=== PATIENT | female | born 2000 | race African-American/Black ===

== ENCOUNTER → 2023-02-08 | Emergency (ER) | payer MEDICAID ==
--- NOTE | 2023-02-08 14:21 | NUR ---
PATIENT LEFT- DIDN'T WAIT FOR DISCHARGE INSTRUCTION.
== END | disposition home or self-care (01) ==
LOC: ER 13:00
DX: Z48.01 Encounter for change or removal of surgical wound dressing (principal); Z98.890 Other specified postprocedural states

== ENCOUNTER 2024-05-18 08:52 | Emergency (ER) | payer MEDICAID ==
[~2024-05-18] VITALS: Ht 167.6 cm; Wt 59.0 kg
[2024-05-18 09:18] VITALS: BP 122/84; TEMP 97.9; O2SAT 99
== END 2024-05-18 10:11 | disposition left against medical advice (07) ==
LOC: ER 09:11
DX: S51.812A Laceration without foreign body of left forearm, initial encounter (principal); Z53.21 Procedure and treatment not carried out due to patient leaving prior to being seen by health care provider; X58.XXXA Exposure to other specified factors, initial encounter; Y93.89 Activity, other specified; Y92.89 Other specified places as the place of occurrence of the external cause; Y99.8 Other external cause status

== ENCOUNTER 2024-05-24 07:25 | Emergency (ER) | payer MEDICAID ==
[~2024-05-24] VITALS: Ht 167.6 cm; Wt 63.5 kg
[2024-05-24 07:53] VITALS: BP 109/66; TEMP 98.7; O2SAT 100
[2024-05-24] MEDS: AMOX/CLAVULANATE 875 MG TABLET PO ONE (08:00)
[2024-05-24] MEDS ORDERED: AMOX-430 PO (08:02)
[2024-05-24] MEDS ORDERED: AMOX/CLAVULANATE 875 MG TABLET ONE (08:05)
== END 2024-05-24 08:12 | disposition home or self-care (01) ==
LOC: ER 07:37
DX: S51.852A Open bite of left forearm, initial encounter (principal); W50.3XXA Accidental bite by another person, initial encounter; Y93.89 Activity, other specified; Y92.89 Other specified places as the place of occurrence of the external cause; Y99.8 Other external cause status

== ENCOUNTER 2024-08-08 10:38 | Emergency (ER) | payer MEDICAID ==
[~2024-08-08] VITALS: Ht 167.6 cm; Wt 63.5 kg
[~2024-08-08 10:38] MED LIST: AMOX-430 PO
[2024-08-08 10:44] VITALS: BP 111/68; TEMP 98.4
[2024-08-08 11:02] VITALS: O2SAT 99
== END 2024-08-08 11:05 | disposition home or self-care (01) ==
LOC: ER 10:38
DX: R10.9 Unspecified abdominal pain (principal)